=== PATIENT | male | born 1970 | race Caucasian/White ===

== ENCOUNTER 2018-11-24 14:35 | Emergency (ER) | payer OTHER ==
--- NOTE | 2018-11-24 14:46 | PDOC ---
History of Present Illness - General Chief Complaint: Chest Pain Stated Complaint: CHEST PAIN X3DAYS Time Seen by Provider: 11/24/18 14:45 Past History - Past Medical History Allergies/Adverse Reactions: Allergies Allergy/AdvReac Type Severity Reaction Status Date / Time No Known Allergies Allergy Verified 08/01/11 16:07 Home Medications: Ambulatory Orders Aleve Sinus & Headache Cplt 2 tab PO BID 02/12/12 hydrOXYzine HCL [Atarax] 10 - 20 mg PO TID PRN #0 tablet 02/12/12 - Surgical History Cholecystectomy: Yes - Immunization History Td Vaccination: Yes Immunization Up to Date: No - Suicide/Smoking/Psychosocial Hx Smoking Status: No Smoking History: Never smoked Number of Cigarettes Smoked Daily: 0 Hx Alcohol Use: No
[2018-11-24 15:04] VITALS: TEMP 98.1; BMI 33.8
[2018-11-24] MEDS ORDERED: KETOROLAC TROMETHAMINE 30 MG/1 ML VIAL IVPUSH ONE (15:13)
--- NOTE | 2018-11-24 15:13 | PDOC ---
History of Present Illness - General Chief Complaint: Chest Pain Stated Complaint: CHEST PAIN X3DAYS Time Seen by Provider: 11/24/18 14:45 - History of Present Illness Initial Comments: 11/24/18 15:07 47 M with h/o HTN presents to ED with chest pain x 2 days. Pt reports midsternal pressure-like pain that is non-radiating. Pt denies any exertional or pleuritic component of pain. Denies SOB. Denies cough/fevers. Pt states that the pain is worse when he presses on the area and thinks it may be related to his sleeping on his belly at night. Denies any leg swelling. Denies recent travel/immobilization. Past History - Past Medical History Allergies/Adverse Reactions: Allergies Allergy/AdvReac Type Severity Reaction Status Date / Time No Known Allergies Allergy Verified 08/01/11 16:07 Home Medications: Ambulatory Orders Aleve Sinus & Headache Cplt 2 tab PO BID 02/12/12 hydrOXYzine HCL [Atarax] 10 - 20 mg PO TID PRN #0 tablet 02/12/12 COPD: No HTN: Yes - Surgical History Cholecystectomy: Yes - Immunization History Td Vaccination: Yes Immunization Up to Date: No - Suicide/Smoking/Psychosocial Hx Smoking Status: No Smoking History: Never smoked Have you smoked in the past 12 months: No Number of Cigarettes Smoked Daily: 0 Information on smoking cessation initiated: No Hx Alcohol Use: No Drug/Substance Use Hx: No Review of Systems - Review of Systems Comments:: 11/24/18 15:08 GENERAL/CONSTITUTIONAL: No fever or chills. No weakness. HEAD, EYES, EARS, NOSE AND THROAT: No change in vision. No ear pain or discharge. No sore throat. CARDIOVASCULAR: + chest pain, no shortness of breath, no loss of consciousness RESPIRATORY: No cough, wheezing, or hemoptysis. GASTROINTESTINAL: No nausea, vomiting, diarrhea or constipation. GENITOURINARY: No dysuria, frequency, or change in urination. MUSCULOSKELETAL: No joint or muscle swelling or pain. No neck or back pain. SKIN: No rash NEUROLOGIC: No vertigo, no change in strength/sensation. ENDOCRINE: No increased thirst. No abnormal weight change. HEMATOLOGIC/LYMPHATIC: No anemia, easy bleeding, or history of blood clots. ALLERGIC/IMMUNOLOGIC: No hives or skin allergy. *Physical Exam - Vital Signs Last Vital Signs Temp Pulse Resp BP Pulse Ox 98.1 F 80 20 167/107 H 100 11/24/18 14:35 11/24/18 14:35 11/24/18 14:35 11/24/18 14:35 11/24/18 14:35 - Physical Exam Comments: 11/24/18 15:09 GENERAL: Awake, alert, and fully oriented, in no acute distress. HEAD: No signs of trauma EYES: PERRLA, EOMI, sclera anicteric, conjunctiva clear ENT: Auricles normal inspection, hearing grossly normal, nares patent, oropharynx clear without exudates. Moist mucosa NECK: Nontender, no stepoffs, Normal ROM, supple, no lymphadenopathy, JVD, or masses LUNGS: Breath sounds equal, clear to auscultation bilaterally. No wheezes, and no crackles HEART: Regular rate and rhythm, normal S1 and S2, no murmurs, rubs or gallops ABDOMEN: Soft, nontender, normoactive bowel sounds. No guarding, no rebound. No masses EXTREMITIES: Normal range of motion, no edema. No clubbing or cyanosis. No cords, erythema, or tenderness NEUROLOGICAL: Cranial nerves II through XII intact. 5/5 strength and sensation in all extremities, Normal speech, normal gait, normal cerebellar function SKIN: Warm, Dry, normal turgor, no rashes or lesions noted. Heart Score/ECG Review - History History: Slightly suspicious - Electrocardiogram EKG: Normal - Age Age: 45-65 - Risk Factors Risk Factors Heart Score: Yes Hx Hypertension, Yes Positive family hx of cardiac disease, Yes Hx Obesity Based on the list above the patient has:: >/=3 risk factors or Hx atherosclerotic disease - Troponin Troponin: </= normal limit - Score Heart Score - Total: 3 - ECG Impressions Comment:: 11/24/18 15:09 NSR, no ELISHA/STDs, no TWIs, axis wnl, intervals wnl, rate 88 ED Treatment Course - LABORATORY CBC & Chemistry Diagram: 11/24/18 15:35 11/24/18 15:35 Medical Decision Making - Medical Decision Making 11/24/18 15:11 47 M with atypical chest pain. EKG is unremarkable but will r/o ACS with trop. Single trop is sufficient as pain has been going on for 2 days. Pt with no PE risk factors, PERC score 0. Suspect pain is msk in etiology given reproducibility with palpation. - labs, trop - CXR 11/24/18 16:44 Labs wnl CXR clear Pt reassessed - now has complete resolution of chest pain Pt is well appearing, with normal vitals. Clinically stable for DC at this time. I discussed the physical exam findings, ancillary test results and final diagnoses with the patient. I answered all of the patient's questions. The patient was satisfied with the care received and felt comfortable with the discharge plan and treatment plan. The patient agrees to follow up with the primary care physician within 24-72 hours. *DC/Admit/Observation/Transfer Diagnosis at time of Disposition: Chest pain - Discharge Dispostion Disposition: HOME - Referrals - Patient Instructions Printed Discharge Instructions: DI for Chest Pain Additional Instructions: Please follow up with your primary doctor this week. You should also see a cdl dedicated truck driver as soon as possible for further evaluation of your chest pain. You may need a stress test given your family history of heart disease. You also need to have your blood pressure re-checked by your primary doctor, as it was slightly elevated today. Uncontrolled blood pressure can eventually lead to kidney disease, heart disease, other serious illness, disability, or even . If you experience any recurrent chest pain, shortness of breath, or any other concerning symptoms, return to the ER immediately. - Post Discharge Activity - Attestations Physician Attestion: 11/24/18 16:46 I, Dr. Blake Cervantes MD, attest that this document has been prepared under my direction and personally reviewed by me in its entirety. I further attest, that it accurately reflects all work, treatment, procedures and medical decision -making performed by me.
[2018-11-24] MEDS ORDERED: KETOROLAC TROMETHAMINE 15 MG/ML VIAL ONE (15:21)
[2018-11-24 15:54] LABS: HEMATOCRIT 49.5 % (35.4-49); HEMOGLOBIN 16.7 GM/dl (11.7-16.9); MCH 31.7 pg (25.7-33.7); MCHC 33.8 g/dl (32.0-35.9); MEAN CELL VOLUME 93.9 fl (80-96); MEAN PLT VOLUME 9.2 fl (7.5-11.1); PLATELET COUNT 199 K/MM3 (134-434); RBC 5.27 M/mm3 (4.00-5.60); RDW 12.7 % (11.9-15.9); WHITE BLOOD COUNT 7.9 K/mm3 (4.0-10.8)
[2018-11-24 16:11] VITALS: BP 144/104; PULSE 87
[2018-11-24 16:16] LABS: ALBUMIN 4.5 g/dl (3.4-5.0); BILIRUBIN,TOTAL 0.7 mg/dl (0.2-1); CALCIUM 9.3 mg/dl (8.5-10); CREATININE 0.9 mg/dl (0.55-1.3); POTASSIUM 4.1 mmol/L (3.5-5.1); TOT PROT 6.8 g/dl (6.4-8.2)
[2018-11-24 17:52] LABS: N-TERMINAL BNP 5.4 pg/ml (5-125)
--- NOTE | 2018-11-25 15:41 | EKG ---
Test Reason : Blood Pressure : / mmHG Vent. Rate : 088 BPM Atrial Rate : 088 BPM P-R Int : 130 ms QRS Dur : 084 ms QT Int : 354 ms P-R-T Axes : 039 -03 018 degrees QTc Int : 428 ms NORMAL SINUS RHYTHM NORMAL ECG NO PREVIOUS ECGS AVAILABLE Confirmed by MD Sebastián, Anand ([id number]) on 11/25/2018 3:41:13 PM Referred By: MATTHEW SAINZ Confirmed By:Anand Lowery MD
== END 2018-11-24 17:02 | disposition home or self-care (01) ==
LOC: FER 14:35
PROC: 3E0333Z Introduction of Anti-inflammatory into Peripheral Vein, Percutaneous Approach (ICD-10-PCS; principal; 2018-11-24)
DX: R07.9 Chest pain, unspecified (principal); I10 Essential (primary) hypertension
CPT/HCPCS: 36415; 71046-TC-FY; 80053; 82550; 82553; 83880; 84484; 85027; 93005; 99284-25